=== PATIENT | female | born 1985 | race African-American/Black ===

== ENCOUNTER 2017-02-13 09:13 | Emergency (ER) | payer MEDICAID ==
[~2017-02-13] VITALS: Ht 157.5 cm; Wt 63.5 kg
[2017-02-13] MEDS ORDERED: SODIUM CHLORIDE 0.9% 1,000 ML IV ONE (09:44)
[2017-02-13 09:46] LABS: Basophils # (auto) 0 uL; Basophils % (auto) 0.6 % (0.0-2.0); Eosinophils # (auto) 0.1 uL; Eosinophils % (auto) 1.9 % (0.0-7.0); Hematocrit 38.8 % (36.0-46.0); Hemoglobin 12.8 g/dL (12.2-16.2); Lymphocytes # (auto) 3.2 uL; Lymphocytes % (auto) 47.3 % (10.0-50.0); Mean Corpuscular Hemoglobin 28.1 pg (28.0-32.0); Mean Corpuscular Volume 85.1 fL (80.0-100.0); Monocytes # (auto) 0.5 uL; Monocytes % (auto) 7.7 % (0.0-12.0); Neutrophils # (auto) 2.9 uL; Neutrophils % (auto) 42.5 % (37.0-80.0); Nucleated Red Blood Cells % 0.2 %; Platelet Count (auto) 218 10^3/uL (140-450); Red Cell Distribution Width 14.2 % (11.8-14.3); White Blood Cell 6.7 10^3/uL (4.4-10.8)
[2017-02-13 10:21] LABS: Albumin 3.6 g/dL (3.4-5.0); BUN/Creatinine Ratio 13.3; Bilirubin, Total 0.3 mg/dL (0.2-1.0); Calcium 8.5 mg/dL (8.5-10.1); Potassium 3.7 mmol/L (3.5-5.1); Total Protein 7.6 g/dL (6.4-8.2)
[2017-02-13] MEDS ORDERED: KETOROLAC TROMETH 30 MG/ML 1ML VIAL IV ONE (11:30)
[2017-02-13] MEDS ORDERED: ONDANSETRON HCL 4 MG/2 ML VIAL IV ONE (11:30)
[2017-02-13 11:31] LABS: Urine RBC None Seen /hpf (0 - 4)
[2017-02-13 11:52] VITALS: BP 134/82
[2017-02-13 11:58] LABS: Urine Bilirubin Negative (Negative); Urine Blood Negative /uL (Negative); Urine Color Yellow (Yellow); Urine Glucose Normal (Normal); Urine Ketone Negative (Negative); Urine Nitrite Negative (Negative); Urine Squamous Epithelial Cell FEW /hpf (<5); Urine Urobilinogen Normal (Negative); Urine pH 6.5 (5.0-8.0)
== END 2017-02-13 12:24 | disposition home or self-care (01) ==
LOC: ER 09:13
DX: R10.13 Epigastric pain (principal); K59.00 Constipation, unspecified; R53.1 Weakness; R11.2 Nausea with vomiting, unspecified; R50.9 Fever, unspecified
CPT/HCPCS: 36415; 74176; 80053; 81001; 82150; 83690; 84702; 85025; 96361; 96374; 96375; 99285; J1885; J2405

== ENCOUNTER 2017-04-21 18:11 | Emergency (ER) | payer MEDICAID ==
[~2017-04-21] VITALS: Ht 157.5 cm; Wt 63.5 kg
[2017-04-21 19:18] LABS: Basophils # (auto) 0 uL; Basophils % (auto) 0.4 % (0.0-2.0); Eosinophils # (auto) 0.1 uL; Eosinophils % (auto) 1.1 % (0.0-7.0); Hematocrit 39.7 % (36.0-46.0); Lymphocytes # (auto) 3.1 uL; Lymphocytes % (auto) 47.4 % (10.0-50.0); Mean Corpuscular Hgb Conc. 32.7 g/dL (32.0-36.0); Mean Corpuscular Volume 85.6 fL (80.0-100.0); Monocytes # (auto) 0.4 uL; Monocytes % (auto) 6.1 % (0.0-12.0); Nucleated Red Blood Cells % 0.1 %; Platelet Count (auto) 229 10^3/uL (140-450); Red Blood Cells 4.64 10^6/uL (4.0-5.20); Red Cell Distribution Width 14.1 % (11.8-14.3); White Blood Cell 6.6 10^3/uL (4.4-10.8)
[2017-04-21] MEDS ORDERED: SODIUM CHLORIDE 0.9% 1,000 ML IV ONE (19:30)
[2017-04-21] MEDS ORDERED: ONDANSETRON HCL 4 MG/2 ML VIAL IV ONE (19:30)
[2017-04-21] MEDS ORDERED: NALBUPHINE HCL 10 MG/1ml INJECTION IV ONE (19:30)
[2017-04-21 19:33] LABS: Albumin 3.6 g/dL (3.4-5.0); BUN/Creatinine Ratio 13.5; Calcium 8.8 mg/dL (8.5-10.1); Potassium 3.9 mmol/L (3.5-5.1)
[2017-04-21 19:36] LABS: Bilirubin, Total 0.2 mg/dL (0.2-1.0); Total Protein 7.1 g/dL (6.4-8.2)
[2017-04-21] MEDS ORDERED: NALBUPHINE HCL 10 MG/1ml INJECTION ONE (19:37)
[2017-04-21 22:06] LABS: Urine Bacteria NONE SEEN /hpf (None Seen); Urine Blood Negative /uL (Negative); Urine Mucus FEW (None Seen); Urine WBC 1 /hpf (0 - 5)
[2017-04-21] MEDS ORDERED: diphenhdrAMINE HCL 50 MG/1 ML VL IV ONE (22:15)
[2017-04-21] MEDS ORDERED: PROMETHAZINE HCL 25 MG/ML 1ML IV ONE (22:15)
[2017-04-21 22:21] LABS: Alcohol, Urine < 3.0 mg/dL (0-5); Amphetamine Screen, Urine NEGATIVE (NEGATIVE); Barbiturate Scree,Urine NEGATIVE (NEGATIVE); Benzodiazephine Screen, Urine NEGATIVE (NEGATIVE); Cannabinoid Screen, Urine POSITIVE (NEGATIVE); Cocaine Screen, Urine NEGATIVE (NEGATIVE); Opiate Scree,Urine NEGATIVE (NEGATIVE); Phencyclidine Screen, Urine NEGATIVE (NEGATIVE)
[2017-04-21] MEDS ORDERED: HYDROmorphone HCL 2 MG/ML VL IV ONE (23:45)
[2017-04-21] MEDS ORDERED: HYDROmorphone HCL 2 MG TAB ONE (23:51)
[2017-04-22] MEDS ORDERED: diphenhdrAMINE HCL 50 MG/1 ML VL IV ONE (00:45)
[2017-04-22] MEDS ORDERED: MAGNESIUM CITRATE SOLUTION 300 ML BTL PO ONE (00:45)
[2017-04-22 02:05] VITALS: BP 129/75
== END 2017-04-22 02:30 | disposition home or self-care (01) ==
LOC: ER 18:11
DX: K29.00 Acute gastritis without bleeding (principal); K59.00 Constipation, unspecified; F12.10 Cannabis abuse, uncomplicated; K21.9 Gastro-esophageal reflux disease without esophagitis
CPT/HCPCS: 36415; 74176; 80053; 80307; 81001; 83690; 84702; 85025; 94761; 96361; 96374; 96375; 96376; 99285; J1200; J2300; J2405; J2550; J7030

== ENCOUNTER 2017-05-18 08:37 | Emergency (ER) | payer MEDICAID ==
[~2017-05-18] VITALS: Ht 157.5 cm; Wt 63.5 kg
[2017-05-18 09:13] VITALS: BP 11/68
[2017-05-18] MEDS ORDERED: ALBUTEROL SULF 2.5 MG/0.5ML(0.5%) NEB SOLN NEB ONE (09:30)
[2017-05-18] MEDS ORDERED: IPRATROPIUM BROM 0.5 MG/2.5ML INH SOL NEB ONE (09:30)
== END 2017-05-18 11:14 | disposition home or self-care (01) ==
LOC: ER 08:37
DX: J20.9 Acute bronchitis, unspecified (principal); J01.90 Acute sinusitis, unspecified
CPT/HCPCS: 94640

== ENCOUNTER 2017-06-09 22:27 | Emergency (ER) | payer MEDICAID ==
[~2017-06-09] VITALS: Ht 157.5 cm; Wt 63.5 kg
[2017-06-09 23:36] LABS: Basophils # (auto) 0.1 uL; Basophils % (auto) 0.9 % (0.0-2.0); Eosinophils # (auto) 0.1 uL; Eosinophils % (auto) 1.8 % (0.0-7.0); Hematocrit 39.5 % (36.0-46.0); Lymphocytes # (auto) 3.5 uL; Lymphocytes % (auto) 46.1 % (10.0-50.0); Mean Corpuscular Hemoglobin 28.3 pg (28.0-32.0); Mean Corpuscular Volume 85.7 fL (80.0-100.0); Monocytes # (auto) 0.4 uL; Monocytes % (auto) 5.3 % (0.0-12.0); Neutrophils # (auto) 3.5 uL; Neutrophils % (auto) 45.9 % (37.0-80.0); Platelet Count (auto) 200 10^3/uL (140-450); Red Blood Cells 4.61 10^6/uL (4.0-5.20); Red Cell Distribution Width 14.4 % (11.8-14.3); White Blood Cell 7.7 10^3/uL (4.4-10.8)
[2017-06-09 23:54] LABS: Albumin 3.6 g/dL (3.4-5.0); BUN/Creatinine Ratio 15.4; Bilirubin, Total 0.1 mg/dL (0.2-1.0); Calcium 8.4 mg/dL (8.5-10.1); Magnesium 2.9 mg/dL (1.6-2.6); Potassium 3.9 mmol/L (3.5-5.1); Total Protein 7.2 g/dL (6.4-8.2)
[2017-06-10 07:11] VITALS: BP 114/68
[2017-06-10] MEDS ORDERED: LIDOCAINE VISCOUS 2% 15ML UD PO ONE (07:15)
[2017-06-10] MEDS ORDERED: PANTOPRAZOLE 40 MG TAB PO ONE (07:15)
[2017-06-10] MEDS ORDERED: ALUM & MAG HYDROX-SIMETH LIQ(MAALOX) 30 ML PO ONE (07:15)
[2017-06-10] MEDS ORDERED: DONNATAL 5ml ORAL Elix (BELLADONNA ALK-PHENOBARB) PO ONE (07:15)
== END 2017-06-10 08:19 | disposition home or self-care (01) ==
LOC: ER 22:27
DX: K21.9 Gastro-esophageal reflux disease without esophagitis (principal)
CPT/HCPCS: 36415; 74176; 80053; 81025; 83690; 83735; 85025; 93005

== ENCOUNTER 2017-08-18 12:35 | Emergency (ER) | payer MEDICAID ==
[~2017-08-18] VITALS: Ht 157.5 cm; Wt 72.6 kg
[2017-08-18 12:48] VITALS: BP 137/76
[2017-08-18] MEDS ORDERED: KETOROLAC TROMETH 60MG/2ML VIAL IM ONE (14:15)
[2017-08-18 14:35] LABS: Urine Bacteria NONE SEEN /hpf (None Seen); Urine Blood Negative /uL (Negative); Urine Mucus FEW (None Seen); Urine WBC 1 /hpf (0 - 5)
[2017-08-18] MEDS ORDERED: MEPERIDINE HCL (50 MG/ML) 1 ML VIAL IM ONE (16:00)
[2017-08-18] MEDS ORDERED: PROMETHAZINE HCL 25 MG/ML 1ML IM ONE (16:00)
== END 2017-08-18 16:37 | disposition home or self-care (01) ==
LOC: ER 12:35
DX: K21.9 Gastro-esophageal reflux disease without esophagitis (principal); M54.42 Lumbago with sciatica, left side
CPT/HCPCS: 73502; 76856; 81001; 81025; 96372; 99285; J1885; J2175; J2550

== ENCOUNTER 2018-11-02 19:33 | Emergency (ER) | payer MEDICAID ==
[~2018-11-02] VITALS: Ht 157.5 cm; Wt 63.5 kg
[2018-11-02 20:32] LABS: Basophils # (auto) 0 uL; Basophils % (auto) 0.4 % (0.0-2.0); Eosinophils # (auto) 0.1 uL; Eosinophils % (auto) 1.5 % (0.0-7.0); Hemoglobin 12.7 g/dL (12.2-16.2); Lymphocytes # (auto) 3.7 uL; Lymphocytes % (auto) 42.8 % (10.0-50.0); Mean Corpuscular Hgb Conc. 33.3 g/dL (32.0-36.0); Mean Corpuscular Volume 84.2 fL (80.0-100.0); Monocytes # (auto) 0.7 uL; Monocytes % (auto) 8.2 % (0.0-12.0); Neutrophils # (auto) 4.1 uL; Neutrophils % (auto) 47.1 % (37.0-80.0); Nucleated Red Blood Cells % 0.2 %; Platelet Count (auto) 212 10^3/uL (140-450); Red Blood Cells 4.52 10^6/uL (4.0-5.20); Red Cell Distribution Width 14.6 % (11.8-14.3); White Blood Cell 8.7 10^3/uL (4.4-10.8)
[2018-11-02 20:45] LABS: Urine Blood Negative /uL (Negative); Urine Mucus FEW (None Seen); Urine Specific Gravity 1.017 (1.001-1.035)
[2018-11-02 20:50] LABS: Albumin 3.9 g/dL (3.4-5.0); BUN/Creatinine Ratio 9.2; Calcium 8.7 mg/dL (8.5-10.1); Potassium 3.5 mmol/L (3.5-5.1)
[2018-11-02 20:52] LABS: Bilirubin, Total 0.5 mg/dL (0.2-1.0); Total Protein 7.5 g/dL (6.4-8.2)
[2018-11-02 21:02] LABS: Urine Bacteria NONE SEEN /hpf (None Seen); Urine WBC 2 /hpf (0 - 5)
[2018-11-02 21:04] LABS: Urine Amorphous Crystal FEW /hpf (None Seen)
[2018-11-03] MEDS ORDERED: SODIUM CHLORIDE 0.9% 1,000 ML IV ONE (07:11)
[2018-11-03] MEDS ORDERED: ALUM & MAG HYDROX-SIMETH LIQ(MAALOX) 30 ML PO ONE (07:15)
[2018-11-03] MEDS ORDERED: FAMOTIDINE 20 MG TAB PO ONE (07:15)
[2018-11-03 07:48] VITALS: BP 94/67
[2018-11-03 08:02] LABS: Magnesium 2.3 mg/dL (1.6-2.6)
== END 2018-11-03 09:43 | disposition home or self-care (01) ==
LOC: ER 19:33
DX: O23.41 Unspecified infection of urinary tract in pregnancy, first trimester (principal); Z3A.01 Less than 8 weeks gestation of pregnancy
CPT/HCPCS: 36415; 76801; 80053; 81001; 83690; 83735; 84702; 85025; 99284; J7030

== ENCOUNTER 2019-12-14 00:24 | Emergency (ER) | payer MEDICAID ==
[~2019-12-14] VITALS: Ht 157.5 cm; Wt 81.6 kg
[2019-12-14 00:50] VITALS: BP 111/48
== END 2019-12-14 02:02 | disposition home or self-care (01) ==
LOC: ER 00:26
DX: K61.0 Anal abscess (principal); K21.9 Gastro-esophageal reflux disease without esophagitis; Z98.890 Other specified postprocedural states
CPT/HCPCS: 46050

== ENCOUNTER 2020-01-08 23:04 | Emergency (ER) | payer MEDICAID ==
[~2020-01-08] VITALS: Ht 157.5 cm; Wt 63.5 kg
[2020-01-09] MEDS ORDERED: cefTRIAXone SOD 1,000 MG VL IM ONE (01:30)
[2020-01-09] MEDS ORDERED: LIDOCAINE 1% HCL (LOCAL ANESTH.) INJ 20ML MDV IJ ONE (02:00)
[2020-01-09 02:11] VITALS: BP 134/81
== END 2020-01-09 02:12 | disposition home or self-care (01) ==
LOC: ER 23:06
DX: K61.0 Anal abscess (principal)
CPT/HCPCS: 96372; 99283; J0696; J2001

== ENCOUNTER 2020-01-17 22:59 | Emergency (ER) | payer MEDICAID ==
[~2020-01-17] VITALS: Ht 157.5 cm; Wt 63.5 kg
[2020-01-17] MEDS ORDERED: diphenhdrAMINE HCL 25 MG CAP PO ONE (23:30)
[2020-01-18 03:25] VITALS: BP 127/80
[2020-01-18] MEDS ORDERED: methylPREDNISolone SOD SUCC 125 MG/2 ML VL IM ONE (03:45)
== END 2020-01-18 04:09 | disposition home or self-care (01) ==
LOC: ER 22:59
DX: S60.562A Insect bite (nonvenomous) of left hand, initial encounter (principal); S60.561A Insect bite (nonvenomous) of right hand, initial encounter; K21.9 Gastro-esophageal reflux disease without esophagitis; W57.XXXA Bitten or stung by nonvenomous insect and other nonvenomous arthropods, initial encounter; Y93.89 Activity, other specified; Y92.89 Other specified places as the place of occurrence of the external cause; Y99.8 Other external cause status
CPT/HCPCS: 96372; 99283; J2930

== ENCOUNTER 2021-03-24 00:25 | Emergency (ER) | payer MEDICAID ==
[~2021-03-24] VITALS: Ht 157.5 cm; Wt 62.6 kg
[2021-03-24 04:20] VITALS: BP 121/84
[2021-03-24] MEDS ORDERED: KETOROLAC TROMETH 60MG/2ML VIAL IM ONE (04:30)
[2021-03-24] MEDS ORDERED: methylPREDNISolone SOD SUCC 125 MG/2 ML VL IM ONE (04:30)
== END 2021-03-24 04:54 | disposition home or self-care (01) ==
LOC: ER 00:25
DX: M79.602 Pain in left arm (principal); M25.522 Pain in left elbow; M25.532 Pain in left wrist; M79.632 Pain in left forearm; K21.9 Gastro-esophageal reflux disease without esophagitis; Y00.XXXA Assault by blunt object, initial encounter; Y93.89 Activity, other specified; Y92.89 Other specified places as the place of occurrence of the external cause; Y99.8 Other external cause status
CPT/HCPCS: 73060; 73070; 73090; 73100; 96372; 99284; J1885; J2930

== ENCOUNTER 2021-09-06 06:34 | Emergency (ER) | payer MEDICAID ==
[~2021-09-06] VITALS: Ht 157.5 cm; Wt 65.8 kg
[2021-09-06 07:56] LABS: Basophils # (auto) 0 10 ^3/uL (0-0.2); Basophils % (auto) 0.3 % (0.0-2.0); Eosinophils # (auto) 0 10 ^3/uL (0-0.8); Hemoglobin 13.6 g/dL (12.2-16.2); Lymphocytes # (auto) 0.7 10 ^3/uL (0.4-5.4); Lymphocytes % (auto) 9.5 % (10.0-50.0); Mean Corpuscular Hemoglobin 28.9 pg (28.0-32.0); Mean Corpuscular Hgb Conc. 33.2 g/dL (32.0-36.0); Monocytes # (auto) 0.4 10 ^3/uL (0-1.3); Monocytes % (auto) 5.2 % (0.0-12.0); Neutrophils # (auto) 6.3 10 ^3/uL (1.6-8.6); Nucleated Red Blood Cells % 0.1 %; Red Blood Cells 4.72 10^6/uL (4.0-5.20); Red Cell Distribution Width 13.6 % (11.8-14.3); White Blood Cell 7.4 10^3/uL (4.4-10.8)
[2021-09-06 08:04] LABS: INR 1.03 (0.9-1.15); Partial Thromboplastin Time 33.6 sec (23.6-33.0)
[2021-09-06 08:26] LABS: Albumin 3.8 g/dL (3.4-5.0); Calcium 8.6 mg/dL (8.5-10.1); Potassium 3.6 mmol/L (3.5-5.1)
[2021-09-06 08:29] LABS: BUN/Creatinine Ratio 11.1; Bilirubin, Total 0.4 mg/dL (0.2-1.0); Total Protein 7.5 g/dL (6.4-8.2)
[2021-09-06] MEDS: SODIUM CHLORIDE 0.9% 1,000 ML IV ONE ×2 (08:55→09:40)
[2021-09-06 09:12] LABS: Alcohol, Urine < 3.0 mg/dL (0-10); Amphetamine Screen, Urine NEGATIVE (NEGATIVE); Barbiturate Scree,Urine NEGATIVE (NEGATIVE); Benzodiazephine Screen, Urine NEGATIVE (NEGATIVE); Cocaine Screen, Urine NEGATIVE (NEGATIVE); Opiate Scree,Urine NEGATIVE (NEGATIVE); Phencyclidine Screen, Urine NEGATIVE (NEGATIVE)
[2021-09-06 09:13] LABS: Urine Bacteria NONE SEEN /hpf (None Seen); Urine Blood Negative /uL (Negative); Urine Mucus FEW (None Seen); Urine WBC 2 /hpf (0 - 5)
[2021-09-06 09:21] LABS: Cannabinoid Screen, Urine POSITIVE (NEGATIVE)
[2021-09-06] MEDS: ONDANSETRON HCL 4 MG/2 ML VIAL IV ONE (09:21)
[2021-09-06] MEDS: MORPHINE SULFATE 4 MG/ML SYR/VIAL IV ONE (11:30)
[2021-09-06 12:45] VITALS: BP 110/68
== END 2021-09-06 12:54 | disposition home or self-care (01) ==
LOC: ER 06:34 → EDSEX 06:34 → EDBD 06:34 → ER 12:54
DX: R10.84 Generalized abdominal pain (principal); E86.0 Dehydration; F12.10 Cannabis abuse, uncomplicated; K21.9 Gastro-esophageal reflux disease without esophagitis; Z32.02 Encounter for pregnancy test, result negative
CPT/HCPCS: 36415; 74176; 80053; 80307; 81001; 81025; 85025; 85610; 85730; 86850; 86900; 86901; 96361; 96374; 96375; 99284; J2270; J2405; J7030

== ENCOUNTER 2021-10-10 06:11 | Emergency (ER) | payer MEDICAID ==
[~2021-10-10] VITALS: Ht 157.5 cm; Wt 59.0 kg
[2021-10-10] MEDS ORDERED: AMOX-277 PO (08:42)
[2021-10-10] MEDS ORDERED: IBUP800T27 PO (08:42)
[2021-10-10] MEDS ORDERED: KETOROLAC TROMETH 60MG/2ML VIAL IM ONE (09:15)
[2021-10-10] MEDS ORDERED: LIDOCAINE 1% HCL (LOCAL ANESTH.) INJ 20ML MDV ONE (09:34)
[2021-10-10] MEDS ORDERED: LIDOCAINE 1% HCL (LOCAL ANESTH.) INJ 20ML MDV ID ONE (09:45)
[2021-10-10 10:06] VITALS: BP 109/73
== END 2021-10-10 10:29 | disposition home or self-care (01) ==
LOC: ER 06:11
DX: K61.0 Anal abscess (principal)
CPT/HCPCS: 46050; 96372; 99284; J1885; J2001

== ENCOUNTER 2021-11-06 11:43 | Emergency (ER) | payer MEDICAID ==
[~2021-11-06] VITALS: Ht 162.6 cm; Wt 64.0 kg
[~2021-11-06 11:43] MED LIST: AMOX-277 PO; IBUP800T27 PO
[2021-11-06] MEDS: SODIUM CHLORIDE 0.9% 1,000 ML IV ONE (13:59)
[2021-11-06] MEDS: diphenhdrAMINE HCL 50 MG/1 ML VL IV ONE (14:09)
[2021-11-06] MEDS: KETOROLAC TROMETH 30 MG/ML 1ML VIAL IV ONE (14:09)
[2021-11-06] MEDS: METOCLOPRAMIDE HCL 5MG/ml INJ 2ml VIAL IV ONE (14:10)
[2021-11-06 14:19] LABS: Basophils # (auto) 0 10 ^3/uL (0-0.2); Basophils % (auto) 0.4 % (0.0-2.0); Eosinophils # (auto) 0 10 ^3/uL (0-0.8); Eosinophils % (auto) 0.6 % (0.0-7.0); Hematocrit 43.6 % (36.0-46.0); Lymphocytes # (auto) 0.6 10 ^3/uL (0.4-5.4); Mean Corpuscular Hemoglobin 27.7 pg (28.0-32.0); Mean Corpuscular Hgb Conc. 32.1 g/dL (32.0-36.0); Mean Corpuscular Volume 86.4 fL (80.0-100.0); Monocytes # (auto) 0.6 10 ^3/uL (0-1.3); Monocytes % (auto) 11.9 % (0.0-12.0); Neutrophils % (auto) 76.1 % (37.0-80.0); Red Blood Cells 5.04 10^6/uL (4.0-5.20); Red Cell Distribution Width 14.1 % (11.8-14.3); White Blood Cell 5.2 10^3/uL (4.4-10.8)
[2021-11-06 14:35] LABS: BUN/Creatinine Ratio 7.1; Calcium 9.1 mg/dL (8.5-10.1); Potassium 3.7 mmol/L (3.5-5.1)
[2021-11-06 15:30] VITALS: BP 136/78
[2021-11-06] MEDS ORDERED: METO-281 PO (16:24)
[2021-11-06] MEDS ORDERED: IBUP600T27 PO (16:24)
== END 2021-11-06 16:34 | disposition home or self-care (01) ==
LOC: EDBD 11:43 → ER 11:50
DX: F41.1 Generalized anxiety disorder (principal); G89.29 Other chronic pain; M54.50 Low back pain, unspecified; K21.9 Gastro-esophageal reflux disease without esophagitis
CPT/HCPCS: 36415; 80048; 84484; 85025; 93005; 96361; 96374; 96375; 99284; J1200; J1885; J2765; J7030

== ENCOUNTER → 2022-01-24 | Emergency (ER) | payer MEDICAID ==
[~2022-01-24] VITALS: Ht 157.5 cm; Wt 61.0 kg
[~2022-01-24] MED LIST changes: +HYDROcodone-ACET 10/325MG TAB PO ONE; +IBUP600T27 PO; +METO-281 PO; +MORPHINE SULFATE 4 MG/ML SYR/VIAL IV ONE; +NITR-87 PO; +PROCHLORPERAZINE EDISYLATE 5 MG/ML 2ML VIAL IV ONE; +cefTRIAXone SOD 1,000 MG VL IM ONE
[2022-01-24 18:06] VITALS: BP 134/81
[2022-01-24 19:17] LABS: Basophils # (auto) 0.1 10 ^3/uL (0-0.2); Basophils % (auto) 1.2 % (0.0-2.0); Eosinophils # (auto) 0.1 10 ^3/uL (0-0.8); Hematocrit 36.7 % (36.0-46.0); Hemoglobin 12.4 g/dL (12.2-16.2); Lymphocytes # (auto) 3.9 10 ^3/uL (0.4-5.4); Mean Corpuscular Hemoglobin 29.1 pg (28.0-32.0); Mean Corpuscular Hgb Conc. 33.9 g/dL (32.0-36.0); Mean Corpuscular Volume 85.8 fL (80.0-100.0); Monocytes # (auto) 0.4 10 ^3/uL (0-1.3); Monocytes % (auto) 5.1 % (0.0-12.0); Neutrophils % (auto) 46.7 % (37.0-80.0); Red Blood Cells 4.27 10^6/uL (4.0-5.20); Red Cell Distribution Width 14.2 % (11.8-14.3); White Blood Cell 8.6 10^3/uL (4.4-10.8)
[2022-01-24 19:47] LABS: Albumin 3.4 g/dL (3.4-5.0); BUN/Creatinine Ratio 15.4; Bilirubin, Total 0.2 mg/dL (0.2-1.0); Calcium 8.8 mg/dL (8.5-10.1); Potassium 3.7 mmol/L (3.5-5.1); Total Protein 6.9 g/dL (6.4-8.2)
[2022-01-24 20:49] LABS: Urine Bacteria FEW /hpf (None Seen); Urine Blood Negative /uL (Negative); Urine Specific Gravity 1.011 (1.001-1.035); Urine WBC 12 /hpf (0 - 5)
== END | disposition home or self-care (01) ==
LOC: ER 18:02
DX: N39.0 Urinary tract infection, site not specified (principal); M62.838 Other muscle spasm; K21.9 Gastro-esophageal reflux disease without esophagitis; Z79.1 Long term (current) use of non-steroidal anti-inflammatories (NSAID); Z79.2 Long term (current) use of antibiotics; Z79.899 Other long term (current) drug therapy
CPT/HCPCS: 36415; 74176; 80053; 81001; 85025

== ENCOUNTER 2022-07-21 20:03 | Emergency (ER) | payer MEDICAID ==
[~2022-07-21] VITALS: Ht 157.5 cm; Wt 64.1 kg
[~2022-07-21 20:03] MED LIST changes: -HYDROcodone-ACET 10/325MG TAB PO ONE; -MORPHINE SULFATE 4 MG/ML SYR/VIAL IV ONE; -PROCHLORPERAZINE EDISYLATE 5 MG/ML 2ML VIAL IV ONE; -cefTRIAXone SOD 1,000 MG VL IM ONE
[2022-07-21 20:25] VITALS: BP 111/78
[2022-07-21] MEDS ORDERED: KETOROLAC TROMETH 60MG/2ML VIAL IM ONE (21:00)
[2022-07-21] MEDS ORDERED: IBUP800T26 PO (22:28)
== END 2022-07-21 22:52 | disposition home or self-care (01) ==
LOC: ER 20:03
DX: S16.1XXA Strain of muscle, fascia and tendon at neck level, initial encounter (principal); Z79.1 Long term (current) use of non-steroidal anti-inflammatories (NSAID); Z79.2 Long term (current) use of antibiotics; Z79.899 Other long term (current) drug therapy; V43.52XA Car driver injured in collision with other type car in traffic accident, initial encounter; Y93.89 Activity, other specified; Y92.89 Other specified places as the place of occurrence of the external cause; Y99.8 Other external cause status
CPT/HCPCS: 72040; 96372; 99283; J1885

== ENCOUNTER 2022-09-17 01:35 | Emergency (ER) | payer MEDICAID ==
[~2022-09-17] VITALS: Ht 157.5 cm; Wt 60.2 kg
[~2022-09-17 01:35] MED LIST changes: -AMOX-277 PO; +AMOX875T4 PO; +IBUP-1454 PO; +IBUP-1455 PO; +IBUP-1456 PO; -IBUP600T27 PO; -IBUP800T27 PO
[2022-09-17 02:18] VITALS: BP 109/64
[2022-09-17 02:50] LABS: Hematocrit 37.8 % (36.0-46.0); Hemoglobin 12.6 g/dL (12.2-16.2); Mean Corpuscular Hemoglobin 29.1 pg (28.0-32.0); Mean Corpuscular Hgb Conc. 33.2 g/dL (32.0-36.0); Mean Corpuscular Volume 87.8 fL (80.0-100.0); Red Blood Cells 4.31 10^6/uL (4.0-5.20); Red Cell Distribution Width 13.9 % (11.8-14.3); White Blood Cell 7.2 10^3/uL (4.4-10.8)
[2022-09-17 03:13] LABS: Band Neutrophils % (manual) 0; Basophils % (manual) 0 (0.0-2.0); Blast Cells 0; Eosinophils % (manual) 0 (0-7); Metamyelocytes % 0; Myelocytes % 0; Promyelocytes % 0; Reactive Lymphocytes 0
[2022-09-17 03:17] LABS: Albumin 3.4 g/dL (3.4-5.0); Calcium 8.5 mg/dL (8.5-10.1); Potassium 3.9 mmol/L (3.5-5.1)
[2022-09-17 03:18] LABS: Bilirubin, Total 0.2 mg/dL (0.2-1.0); Total Protein 6.3 g/dL (6.4-8.2)
[2022-09-17 04:01] LABS: Urine Bacteria NONE SEEN /hpf (None Seen); Urine Blood Negative /uL (Negative); Urine Mucus FEW (None Seen); Urine Specific Gravity 1.033 (1.001-1.035); Urine WBC 1 /hpf (0 - 5)
[2022-09-17 05:06] LABS: Lymphocytes % (manual) 65 (10.0-50.0); Monocytes % (manual) 8 (0-12)
== END 2022-09-17 04:39 | disposition left against medical advice (07) ==
LOC: ER 01:35
DX: R10.9 Unspecified abdominal pain (principal); R10.2 Pelvic and perineal pain; Z53.21 Procedure and treatment not carried out due to patient leaving prior to being seen by health care provider
CPT/HCPCS: 36415; 80053; 81001; 83690; 84702; 85007; 85027

== ENCOUNTER 2024-04-02 17:13 | Inpatient (IN) | payer MEDICAID ==
[~2024-04-02] VITALS: Ht 157.5 cm; Wt 82.1 kg
[2024-04-02] MEDS ORDERED: LACTATED RINGER'S 1,000 ML IV SCH ×2 (18:00→19:00)
[2024-04-02] MEDS ORDERED: LIDOCAINE 2%HCL (LOCAL ANESTH.) INJ 20ML MDV IJ PRN (18:00)
[2024-04-02] MEDS ORDERED: ONDANSETRON HCL 4 MG/2 ML VIAL ONE (18:57)
[2024-04-02] MEDS ORDERED: DexAMETHasone SOD PHOS 10MG/1ML VIAL INJ ONE (18:57)
[2024-04-02] MEDS ORDERED: oxyTOCIN 10 UNIT/ML 10ML VIAL ONE (18:57)
[2024-04-02] MEDS ORDERED: fentaNYL CITRATE 100 MCG/2 ML VL ONE (18:58)
[2024-04-02] MEDS ORDERED: MORPHINE SULF PF 5 MG/10 ML VIAL ONE (18:58)
[2024-04-02] MEDS ORDERED: diphenhdrAMINE HCL 50 MG/1 ML VL ONE (18:58)
[2024-04-02] MEDS: ceFAZolin 2 GM/D5W50ml 50 ML IV ONE ×2 (18:59→19:35)
[2024-04-02] MEDS ORDERED: LACTATED RINGER'S 1,000 ML IV ONE (19:00)
--- NOTE | 2024-04-02 19:19 | DVHHP ---
ADMIT DATE: 04/02/2024 CHIEF COMPLAINT: Labor. HISTORY OF PRESENT ILLNESS: The patient is a 39-year-old 6, para 3-0-2-3, with EDC on 04/15, estimated gestational age of 38 weeks; admitted in labor. The patient had previous section x2. She does not want any tubal ligation. She wishes to undergo repeat section. PAST MEDICAL HISTORY: None. PAST SURGICAL HISTORY: x2. SOCIAL HISTORY: None. FAMILY HISTORY: None. OBSTETRIC AND GYNECOLOGIC HISTORY: Two sections, and one vaginal delivery. REVIEW OF SYSTEMS: Consistent with HPI. PHYSICAL EXAMINATION: VITAL SIGNS: Stable, afebrile. HEENT: Within normal limits. CARDIOVASCULAR: Regular rate and rhythm. LUNGS: Clear to auscultation. BREASTS: Symmetrical. No masses. ABDOMEN: Gravid. Positive heart. PELVIC: 1 cm, 60%, -2. EXTREMITIES: No clubbing, cyanosis, or edema. IMPRESSION: * Intrauterine at 38 weeks' in labor. * Previous section x2. * Desires repeat section. * AMA. PLAN: Repeat section. Informed consent obtained. Risks and complications of surgery including infection; bleeding; hematoma formation; injury to bowel or bladder, or surrounding organs; possibility of DVT or pulmonary embolism; and risk of anesthesia were discussed with the patient. Options reviewed. All questions answered. The patient fully understands. She wishes to proceed with the planned procedure. DO SONIA Dunham TID: [id number] RECEIPT: [id number]
[2024-04-02] MEDS ORDERED: IBUP-1456 PO ×2 (19:21→21:07)
[2024-04-02] MEDS ORDERED: HYDR-4072 PO (19:21)
[2024-04-02] MEDS ORDERED: DOCU-94 PO (19:21)
[2024-04-02 19:22] LABS: Basophils # (auto) 0 10 ^3/uL (0-0.2); Basophils % (auto) 0.2 % (0.0-2.0); Eosinophils # (auto) 0.1 10 ^3/uL (0-0.8); Eosinophils % (auto) 0.9 % (0.0-7.0); Hematocrit 30.8 % (36.0-46.0); Hemoglobin 9.8 g/dL (12.2-16.2); Mean Corpuscular Hemoglobin 25.8 pg (28.0-32.0); Mean Corpuscular Hgb Conc. 31.9 g/dL (32.0-36.0); Monocytes # (auto) 0.7 10 ^3/uL (0-1.3); Monocytes % (auto) 9.1 % (0.0-12.0); Neutrophils # (auto) 5.4 10 ^3/uL (1.6-8.6); Neutrophils % (auto) 65.8 % (37.0-80.0); Platelet Count (auto) 171 10^3/uL (140-450); Red Cell Distribution Width 16.5 % (11.8-14.3); White Blood Cell 8.2 10^3/uL (4.4-10.8)
[2024-04-02] MEDS ORDERED: ONDANSETRON HCL 4 MG/2 ML VIAL IV PRN ×3 (19:30→22:00)
[2024-04-02 19:38] LABS: Albumin 3.7 g/dL (3.2-4.8); Anion Gap 6 (5-15); Aspartate Aminotransferase 14 U/L (13-40); BUN/Creatinine Ratio 8.8 (10.0-20.0); Calcium 9.4 mg/dL (8.7-10.4); Carbon Dioxide 25 mmol/L (20-31); Glucose 94 mg/dL (74-106); Potassium 3.8 mmol/L (3.5-5.1); Sodium 138 mmol/L (136-145)
[2024-04-02 19:39] LABS: Bilirubin, Total 0.3 mg/dL (0.2-1.0); Total Protein 6.1 g/dL (5.7-8.2)
[2024-04-02 19:40] LABS: INR 0.95 (0.9-1.15); Partial Thromboplastin Time 30.2 SEC (24.5-34.5); Prothrombin Time 10.1 sec (9.3-11.8)
[2024-04-02 19:56] LABS: Alanine Aminotransferase < 9 U/L (7-40); Alkaline Phosphatase 140 U/L (46-116); Blood Urea Nitrogen 6 mg/dL (9-23); Chloride 107 mmol/L (98-107)
[2024-04-02] MEDS: CARBOPROST TROMETHAMINE 250 MCG/1ML VIAL IM ONE (20:06)
[2024-04-02] MEDS ORDERED: METOPROLOL TARTRATE 1MG/1ML-5ML VIAL IV ONE (20:21)
--- NOTE | 2024-04-02 20:22 | DVHOP2 ---
Operative Report DATE OF OPERATION:04/02/24 PREOPERATIVE DIAGNOSES: [iup at 38wks in labor,previous csx2,desires rcs,ama] POSTOPERATIVE DIAGNOSES: [same] OPERATION PERFORMED: Repeat Section FINDINGS: [f] infant. Apgars of [8] and [8]. Weight [good] crying tone. [clear] amniotic fluid. Placenta and three-vessel were intact. Normal tubes, ovaries, and uterus. Moderate scar tissue. SURGEON: Jayla Bull D.O. MAINTENANCE WORKER SWIMMING POOL: electrophysiology technician, [reji]. ANESTHESIOLOGIST: Chandni moran ANESTHESIA: [Duramorph spinal, regional]. COMPLICATIONS: [none]. ESTIMATED BLOOD LOSS: [800] mL. BLOOD PRODUCTS USED: [none]. PROCEDURE IN DETAIL: The patient was taken to the operating room, placed in sitting position, and spinal was placed without difficulty. She was then prepped and draped in a sterile fashion. A low Pfannenstiel incision was made scapel. At this point, it was carried down through the rectus fascia, nicked in the midline, and carried laterally. The rectus muscles were in the midline. Peritoneum was identified and entered with sharp dissection. Vesicouterine peritoneum was taken off the lower uterine segment. A lower uterine transverse incision was made with a scalpel down the chorionic membranes, ruptured with hemostat. Infant was in vertex position. One hand was placed in the lower uterine segment. Head was essentially delivered spontaneously. Nose and mouth were bulb suctioned. Shoulders and torso were delivered without difficulty. Again, pharynx, nose, and mouth were re-suctioned with vigorous crying tone. Cord was cut. The was handed off to the awaiting Respiratory. At this point, umbilical blood sample was taken. Placenta was removed. Uterus was exteriorized, cleared off all clots and debris, irrigated, and closed with a double layer of 0-Vicryl. The vesicouterine peritoneum was incorporated into this closure. We had complete hemostasis. EBL was [800] mL. The instrument, lap, and sponge count was correct x1. The uterus was placed back into the peritoneum. The peritoneal cavity was re-inspected and the lower uterine incision with good hemostasis. We closed the peritoneum with running continuous of 2-0 Vicryl. The Rectus Fascia was closed with 0-PDS, running continuous, looped-0. The skin was closed undermined, irrigated, and close with jorge. CONDITION: The patient's and the 's condition is stable and but guarded. JAYLA BULL DO Apr 02, 2024 20:22
--- NOTE | 2024-04-02 20:23 | POSTOP ---
Post-Operative Note Post-Operative Note Preop Diagnosis iup at 38wks in labor,desires rcs,ama,previous csx2 Postop Diagnosis: same Operation performed rcs Specimen baby girl,apgars 8-8 Anesthesia: Regional Anesthesiologist: gaye Blood Loss(fluid mgmt) 800ml Surgeon Jarret Bull Special Makeup Fx Artist Instructor reji Implant na Complications & Mgmt none Date 04/02/24 Time 20:22 JARRET BULL DO Apr 02, 2024 20:23
[2024-04-02 20:39] LABS: Amphetamine Screen, Urine Neg (NEGATIVE); Barbiturate Scree,Urine Neg (NEGATIVE); Benzodiazephine Screen, Urine Neg (NEGATIVE); Cannabinoid Screen, Urine Neg (NEGATIVE); Cocaine Screen, Urine Neg (NEGATIVE); Opiate Scree,Urine Neg (NEGATIVE); Phencyclidine Screen, Urine Neg (NEGATIVE)
[2024-04-02 20:41] LABS: Urine Bacteria FEW /hpf (None Seen); Urine Blood Negative /uL (Negative); Urine Clarity Clear (Clear); Urine Color Light-Yellow (Yellow); Urine Mucus FEW (None Seen); Urine Protein, UAD Negative (Negative); Urine Specific Gravity 1.007 (1.001-1.035); Urine Squamous Epithelial Cell FEW /hpf (<5); Urine Urobilinogen Normal (Negative); Urine WBC <1 /hpf (0 - 5); Urine pH 6.5 (5.0-9.0)
[2024-04-02] MEDS: DIPHENOXYLATE W/ATROPINE 2.5 MG TAB PO SCH (20:57)
[2024-04-02 21:04] VITALS: PULSE 80; RESP 22; O2SAT 100
[2024-04-02] MEDS ORDERED: PRENCAP69 PO (21:07)
[2024-04-02] MEDS: ACETAMINOPHEN IV 100 ML IV ONE (21:09)
[2024-04-02] MEDS ORDERED: HYDROmorphone HCL 2 MG/ML VL/or syr IV PRN (21:15)
[2024-04-02] MEDS ORDERED: ACETAMINOPHEN IV 1000 MG/100ML (10MG/ML) IV ONE (21:15)
[2024-04-02] MEDS ORDERED: NALOXONE HCL 0.4 MG/ML VIAL IV PRN (21:15)
[2024-04-02] MEDS ORDERED: diphenhdrAMINE HCL 50 MG/1 ML VL IV PRN (21:15)
[2024-04-02] MEDS ORDERED: NALBUPHINE HCL 10 MG/1ml INJECTION IV ONE (21:15)
[2024-04-02 21:40] VITALS: BP 146/66; PULSE 84; RESP 16; O2SAT 97
[2024-04-02 21:50] VITALS: BP 110/74; PULSE 74; RESP 18; TEMP 97.7; O2SAT 97
[2024-04-02 22:00] VITALS: BP 145/66; PULSE 71; RESP 18; TEMP 97.7; O2SAT 97
[2024-04-02] MEDS ORDERED: LACT. RINGERS/OXYTOCIN 20UNITS 1,000 ML IV ONE (22:00)
[2024-04-02] MEDS ORDERED: ePHEDrine SULFATE 50 MG/ML AMP IV PRN (22:00)
[2024-04-02] MEDS: GUM (CHEWING) 1 GUM CHEW CHEW ONE (22:00)
[2024-04-02] MEDS: NALBUPHINE HCL 10 MG/1ml INJECTION IV ONE (22:50)
[2024-04-02 23:00] VITALS: BP 138/84; PULSE 73; RESP 18; TEMP 97.8; O2SAT 97
[2024-04-02] MEDS: diphenhdrAMINE HCL 50 MG/1 ML VL IV PRN (23:51)
[2024-04-03] VITALS (9 sets, daily range): BP systolic 106–149; BP diastolic 56–84; PULSE 68–87; RESP 18–20; TEMP 97.3–98.1; O2SAT 95–100
[2024-04-03] MEDS ORDERED: ONDANSETRON HCL 4 MG/2 ML VIAL IV PRN (00:30)
--- NOTE | 2024-04-03 01:01 | DVHPN2 ---
Progress Note Date Seen: Apr 03, 2024 Subjective S: Pt has not ambulated yet, dinh catheter in place, c/o itching from anesthesia, had benadryl already. vital signs Vital Sign Date Time Temp Pulse Resp B/P (MAP) Pulse Ox O2 Delivery O2 Flow Rate FiO2 04/02/24 22:50 74 18 110/79 04/02/24 21:40 Room Air 04/02/24 21:20 100 04/02/24 21:04 97.1 97.1 Total Intake and Output 04/02/24 04/02/24 04/03/24 15:00 23:00 07:00 Intake Total 50 ml Output Total 850 ml Balance -800 ml medications Current Medications Medications Dose Ordered Sig/Melquiades Route Start Time Stop Time Status Last Admin Dose Admin Diphenoxylate HCl/ Atropine 5 mg Q12HR PO 04/02/24 22:00 04/02/24 20:57 5 MG Lactated Ringer's 1,000 ml @ 125 mls/hr Q8H IV 04/02/24 22:00 Cefazolin Sodium 50 ml @ 100 mls/hr Q8H IV 04/03/24 03:30 04/03/24 19:59 Ephedrine Sulfate 10 mg [id number] PRN IV 04/02/24 22:00 04/03/24 21:59 Acetaminophen 1,000 mg Q8HPRN PRN IV 04/02/24 22:00 04/03/24 21:59 Diphenhydramine HCl 25 mg Q4HP PRN IV 04/03/24 00:00 04/02/24 23:51 25 MG Ondansetron HCl 4 mg Q4HPRN PRN IV 04/03/24 00:30 laboratory and microbiology Laboratory Tests 04/02/24 19:07 Test 04/02/24 19:07 Range/Units Serum Glucose 94 74-106 mg/dL Objective O: VSS Chest: heart sounds normal and lung sounds clear bilaterally Abd: soft, non-tender, fundus at U/firm/midline, hypoactive bowel sounds, no rebound or guarding Incision: sylke dressing open to air, clean/dry/intact Ext: Non-tender, No edema, 2+ BLE DTRs Lochia: minimal See lab results Problems(with codes): (1) S/P repeat low transverse (2) Iron deficiency anemia of mother during Assessment/Plan A/P: 39yo now POD#1 s/p repeat -Continue with post-op PP care Plan discussed with: Patient TAL BOOGIE CNM Apr 03, 2024 01:01
[2024-04-03 01:25] LABS: Urine Bacteria FEW /hpf (None Seen); Urine Blood TRACE /uL (Negative); Urine Clarity Clear (Clear); Urine Color Colorless (Yellow); Urine Protein, UAD Negative (Negative); Urine Specific Gravity 1.009 (1.001-1.035); Urine Squamous Epithelial Cell FEW /hpf (<5); Urine Urobilinogen Normal (Negative); Urine WBC 1 /hpf (0 - 5); Urine pH 6.5 (5.0-9.0)
[2024-04-03 01:47] LABS: Basophils # (auto) 0 10 ^3/uL (0-0.2); Basophils % (auto) 0.1 % (0.0-2.0); Eosinophils # (auto) 0 10 ^3/uL (0-0.8); Hematocrit 29.6 % (36.0-46.0); Hemoglobin 9.5 g/dL (12.2-16.2); Lymphocytes # (auto) 1.4 10 ^3/uL (0.4-5.4); Lymphocytes % (auto) 7.3 % (10.0-50.0); Mean Corpuscular Hemoglobin 25.8 pg (28.0-32.0); Mean Corpuscular Volume 80.5 fL (80.0-100.0); Monocytes # (auto) 0.7 10 ^3/uL (0-1.3); Monocytes % (auto) 3.9 % (0.0-12.0); Neutrophils # (auto) 16.8 10 ^3/uL (1.6-8.6); Neutrophils % (auto) 88.7 % (37.0-80.0); Platelet Count (auto) 192 10^3/uL (140-450); Red Blood Cells 3.67 10^6/uL (4.0-5.20); Red Cell Distribution Width 16.4 % (11.8-14.3); White Blood Cell 18.9 10^3/uL (4.4-10.8)
[2024-04-03 01:50] LABS: Protein, Urine 7.6 mg/dL (1-14)
[2024-04-03 01:51] LABS: Albumin 3.6 g/dL (3.2-4.8); Anion Gap 6 (5-15); Aspartate Aminotransferase 19 U/L (13-40); Bilirubin, Total 0.3 mg/dL (0.2-1.0); Calcium 9.5 mg/dL (8.7-10.4); Carbon Dioxide 23 mmol/L (20-31); Potassium 4.4 mmol/L (3.5-5.1); Sodium 136 mmol/L (136-145); Total Protein 5.9 g/dL (5.7-8.2); Uric Acid 3.7 mg/dL (3.1-7.8)
[2024-04-03 01:53] LABS: Creatinine, Urine 32.87 mg/dL (30.0-125.0); Urine Protein/Creatinine Ratio 0.23
[2024-04-03 01:58] LABS: Chloride 107 mmol/L (98-107); Glucose 133 mg/dL (74-106)
[2024-04-03 01:59] LABS: Alanine Aminotransferase < 9 U/L (7-40); Alkaline Phosphatase 129 U/L (46-116); BUN/Creatinine Ratio 7.6 (10.0-20.0); Blood Urea Nitrogen < 5 mg/dL (9-23)
[2024-04-03] MEDS: LACTATED RINGER'S 1,000 ML IV SCH (02:14)
[2024-04-03] MEDS: IBUPROFEN 800 MG TAB PO PRN (02:20)
[2024-04-03] MEDS: methylPREDNISolone SOD SUCC 125 MG/2 ML VL IV ONE (03:22)
[2024-04-03] MEDS: ceFAZolin 1GM/50ML 50 ML IV SCH (03:41)
[2024-04-03] MEDS ORDERED: ceFAZolin 1GM/50ML 50 ML IV SCH (04:00)
[2024-04-03] MEDS: ACETAMINOPHEN IV 1000 MG/100ML (10MG/ML) IV PRN (04:59)
[2024-04-03] MEDS: diphenhdrAMINE HCL 50 MG/1 ML VL IV ONE (07:14)
[2024-04-03 07:30] LABS: Basophils # (auto) 0 10 ^3/uL (0-0.2); Basophils % (auto) 0.1 % (0.0-2.0); Eosinophils # (auto) 0 10 ^3/uL (0-0.8); Lymphocytes # (auto) 1.5 10 ^3/uL (0.4-5.4); Lymphocytes % (auto) 8.3 % (10.0-50.0); Nucleated Red Blood Cells % 0.1 %
[2024-04-03 07:35] LABS: Hematocrit 28.7 % (36.0-46.0); Hemoglobin 9.3 g/dL (12.2-16.2); Mean Corpuscular Hgb Conc. 32.5 g/dL (32.0-36.0); Mean Corpuscular Volume 79.9 fL (80.0-100.0); Monocytes # (auto) 0.5 10 ^3/uL (0-1.3); Monocytes % (auto) 2.9 % (0.0-12.0); Neutrophils # (auto) 16.1 10 ^3/uL (1.6-8.6); Neutrophils % (auto) 88.7 % (37.0-80.0); Platelet Count (auto) 186 10^3/uL (140-450); Red Cell Distribution Width 16.2 % (11.8-14.3); White Blood Cell 18.2 10^3/uL (4.4-10.8)
[2024-04-03] MEDS: ALPRAZolam 0.5 MG TAB PO ONE (09:25)
[2024-04-03] MEDS: LACT. RINGERS/OXYTOCIN 20UNITS 1,000 ML IV ONE (12:37)
[2024-04-03] MEDS: FAMOTIDINE (10MG/ML) 2ML VL IV ONE (14:37)
[2024-04-03] MEDS ORDERED: PHISODERM TOP SOLN 240ML BTL TOP ONE (14:45)
[2024-04-03] MEDS ORDERED: PHISODERM TOP SOLN 240ML BTL TOP PRN (15:45)
[2024-04-03] MEDS ORDERED: FERRCAP9 PO (16:46)
[2024-04-03] MEDS: KETOROLAC TROMETH 30 MG/ML 1ML VIAL IV PRN (19:38)
[2024-04-03] MEDS: OXYCODONE W/ ACETAMINOPHEN 5/325MG TABLET PO PRN (21:00)
[2024-04-04 02:50] VITALS: BP 129/79; PULSE 89; RESP 14; TEMP 98.7; O2SAT 95
--- NOTE | 2024-04-04 06:21 | DVHPN2 ---
Progress Note Date Seen: Apr 04, 2024 Subjective S: bleeding is less, eating food without issues, denies lightheaded/dizziness, pain well controlled with oral medications, no concerns with urinating, passing flatus, no BM yet, ambulating well, and formula. Pt denies ROSE/vision changes/RUQ pain. vital signs Vital Sign Date Time Temp Pulse Resp B/P (MAP) Pulse Ox O2 Delivery O2 Flow Rate FiO2 04/04/24 02:50 98.7 89 14 129/79 (96) 95 98.7 04/03/24 18:30 Room Air Total Intake and Output 04/03/24 04/03/24 04/04/24 15:00 23:00 07:00 Intake Total 240 ml Output Total 2500 ml 200 ml Balance -2500 ml 40 ml medications Current Medications Medications Dose Ordered Sig/Melquiades Route Start Time Stop Time Status Last Admin Dose Admin Diphenoxylate HCl/ Atropine 5 mg Q12HR PO 04/02/24 22:00 04/02/24 20:57 5 MG Lactated Ringer's 1,000 ml @ 125 mls/hr Q8H IV 04/02/24 22:00 04/03/24 17:09 125 MLS/HR Diphenhydramine HCl 25 mg Q4HP PRN IV 04/03/24 00:00 04/03/24 23:31 25 MG Ondansetron HCl 4 mg Q4HPRN PRN IV 04/03/24 00:30 Ibuprofen 800 mg Q8HP PRN PO 04/03/24 02:15 04/04/24 03:02 800 MG Sodium Lauryl Sulfate 240 ml PRN PRN TOP 04/03/24 15:45 Ketorolac Tromethamine 30 mg Q6HPRN PRN IV 04/03/24 18:45 04/08/24 18:44 04/03/24 19:38 30 MG Oxycodone/ Acetaminophen 2 tab Q6HP PRN PO 04/03/24 19:00 04/04/24 03:02 2 TAB laboratory and microbiology Laboratory Tests 04/03/24 06:37 04/03/24 01:20 Test 04/03/24 01:20 Range/Units Serum Glucose 133 H 74-106 mg/dL Objective O: VSS Chest: heart sounds normal and lung sounds clear bilaterally Abd: soft, non-tender, fundus at U/firm/midline, active bowel sounds, no rebound or guarding Incision: sylke dressing open to air, clean/dry/intact Ext: Non-tender, No edema, 2+ BLE DTRs Lochia: minimal See lab results Problems(with codes): (1) hypertension (2) S/P repeat low transverse (3) Iron deficiency anemia of mother during Assessment/Plan A: 39yo now POD#2 s/p repeat Rh+ Rubella Immune Breast and formula feeding Pain control with PO medications Bowel regimen P: D/C home today Rx sent to pharmacy precautions and preeclampsia warning signs reviewed F/U with [facility] office in 1 week Plan discussed with: Patient TAL BOOGIE CNM Apr 04, 2024 06:21
--- NOTE | 2024-04-04 06:21 | DVHDS2 ---
Obstetrics Discharge Summary Obstetrics Discharge Summary Date of Admission: Apr 02, 2024 Date of Discharge: Apr 04, 2024 Reason For Admission: Onset of Labor, Section (Repeat) Procedures: NST Intrapartum Procedures: (LTCS) Procedures: Antibiotics, Hct/date: (04/04/24), Hgb/date: (04/04/24) Operative Complicat: None Discharge Diagnosis: Term -Delivered, Others (PP HTN) Discharge Information: Activity (as tolerated, no heavy lifting and nothing in the vagina for 6 weeks), Diet (Routine), Medications (Rx sent), Instructions (Routine), Discharge to (Home), Accompanied by (family), Discarge date (04/04/24) TAL BOOGIE CNM Apr 04, 2024 06:21
[2024-04-04 07:00] VITALS: BP 137/84; PULSE 75; RESP 17; TEMP 97.8; O2SAT 97
[2024-04-04] MEDS ORDERED: BISACODYL 10 MG RECT SUPP PR PRN (07:30)
[2024-04-04 08:06] LABS: RPR Non Reactive (Non Reactive)
[2024-04-04 09:23] LABS: Basophils # (auto) 0 10 ^3/uL (0-0.2); Basophils % (auto) 0.1 % (0.0-2.0); Eosinophils # (auto) 0.1 10 ^3/uL (0-0.8); Eosinophils % (auto) 0.4 % (0.0-7.0); Hematocrit 23.7 % (36.0-46.0); Hemoglobin 7.7 g/dL (12.2-16.2); Lymphocytes # (auto) 3.1 10 ^3/uL (0.4-5.4); Lymphocytes % (auto) 22.4 % (10.0-50.0); Mean Corpuscular Hgb Conc. 32.6 g/dL (32.0-36.0); Mean Corpuscular Volume 79.8 fL (80.0-100.0); Monocytes % (auto) 7.6 % (0.0-12.0); Neutrophils # (auto) 9.6 10 ^3/uL (1.6-8.6); Neutrophils % (auto) 69.5 % (37.0-80.0); Nucleated Red Blood Cells % 0.1 %; Platelet Count (auto) 186 10^3/uL (140-450); Red Blood Cells 2.97 10^6/uL (4.0-5.20); Red Cell Distribution Width 16.4 % (11.8-14.3); White Blood Cell 13.8 10^3/uL (4.4-10.8)
[2024-04-04] MEDS: DOCUSATE SOD 100 MG CAP PO SCH (09:58)
[2024-04-04] MEDS: DOCUSATE CALCIUM 240 MG CAP PO SCH (09:58)
[2024-04-04 11:00] VITALS: BP 115/69; PULSE 83; RESP 14; TEMP 98.1; O2SAT 97
[2024-04-04] MEDS: SIMETHICONE 80 MG CHEWABLE TABLET PO SCH (11:03)
[2024-04-04] MEDS ORDERED: ZOLP5TAB5 PO (11:29)
[2024-04-04] MEDS ORDERED: PERCOT PO (11:29)
[2024-04-04 15:00] VITALS: BP 124/66; PULSE 87; RESP 18; TEMP 97.9; O2SAT 94
== END 2024-04-04 17:35 | disposition home or self-care (01) | DRG 540 ==
LOC: LDRP 17:13 → UNDOADMOB 17:13 → LDRP 17:53 → INTOOBSV 17:53 → UNDOADMOB 17:53 → OBSVTOIN 17:53 → LDRP 18:49 → OBSVTOIN 18:49 → LDRP 20:58
PROVIDERS: ADMIT Obstetrics & Gynecology; ATTEND Obstetrics & Gynecology
PROC: 10D00Z1 Extraction of Products of Conception, Low, Open Approach (ICD-10-PCS; principal; 2024-04-02 19:31)
DX: O34.211 Maternal care for low transverse scar from previous cesarean delivery (principal); O16.5 Unspecified maternal hypertension, complicating the puerperium; Z37.0 Single live birth; Z3A.38 38 weeks gestation of pregnancy
CPT/HCPCS: 36415; 59025; 80053; 80307; 81001; 82570; 84156; 84550; 85025; 85610; 85730; 86592; 86703; 86780; 86803; 86850; 86900; 86901; 94760; 94762; 96360; 96361; 96365; 96366; 96374; 96375; G0378; J0131; J1100; J1885; J2405; J2590; J3490